=== PATIENT | male | born 1975 | race Two or more races ===

== ENCOUNTER 2022-12-29 10:34 | Emergency (ER) | payer MEDICAID, OTHER ==
[~2022-12-29] VITALS: Ht 177.8 cm; Wt 100.0 kg
[2022-12-29 10:46] VITALS: BP 133/89; PULSE 63; RESP 18; TEMP 97.5; O2SAT 97
[2022-12-29] MEDS ORDERED: LORazepam 2MG/ML-1ML VIAL IV ONE (11:15)
[2022-12-29] MEDS ORDERED: IBUP-1456 PO (12:15)
== END 2022-12-29 12:27 | disposition home or self-care (01) ==
LOC: EDBD 10:34 → ER 10:34
DX: S46.911A Strain of unspecified muscle, fascia and tendon at shoulder and upper arm level, right arm, initial encounter (principal); S60.811A Abrasion of right wrist, initial encounter; F45.8 Other somatoform disorders; W54.0XXA Bitten by dog, initial encounter; Y93.89 Activity, other specified; Y92.89 Other specified places as the place of occurrence of the external cause; Y99.8 Other external cause status
CPT/HCPCS: 73030; 73110; 96374; 99284; J2060

== ENCOUNTER 2023-07-20 14:52 | Inpatient (IN) | payer MEDICAID ==
[~2023-07-20] VITALS: Ht 170.2 cm; Wt 85.0 kg
[~2023-07-20 14:52] MED LIST: IBUP-1456 PO
[2023-07-20 15:40] LABS: Basophils # (auto) 0 10 ^3/uL (0-0.2); Basophils % (auto) 0.5 % (0.0-2.0); Eosinophils # (auto) 0 10 ^3/uL (0-0.8); Eosinophils % (auto) 0.8 % (0.0-7.0); Hematocrit 45.3 % (41.0-53.0); Hemoglobin 15.2 g/dL (13.5-17.5); Mean Corpuscular Hemoglobin 29.8 pg (28.0-32.0); Mean Corpuscular Hgb Conc. 33.6 g/dL (32.0-36.0); Mean Corpuscular Volume 88.7 fL (80.0-100.0); Monocytes # (auto) 0.4 10 ^3/uL (0-1.3); Neutrophils % (auto) 73.7 % (37.0-80.0); Nucleated Red Blood Cells % 0.1 %; Red Blood Cells 5.11 10^6/uL (4.5-5.90); Red Cell Distribution Width 13.8 % (11.8-14.3); White Blood Cell 5.4 10^3/uL (4.4-10.8)
[2023-07-20 15:57] LABS: INR 1.03 (0.9-1.15); Partial Thromboplastin Time 27.6 SEC (24.5-34.5); Prothrombin Time 10.9 sec (9.3-11.8)
[2023-07-20 16:19] LABS: Alanine Aminotransferase 24 U/L (7-40); Albumin 5.1 g/dL (3.2-4.8); Alkaline Phosphatase 71 U/L (46-116); Anion Gap 5 (5-15); Aspartate Aminotransferase 14 U/L (13-40); BUN/Creatinine Ratio 13.1 (10.0-20.0); Bilirubin, Total 0.7 mg/dL (0.2-1.0); Blood Urea Nitrogen 11 mg/dL (9-23); Carbon Dioxide 27 mmol/L (20-30); Chloride 107 mmol/L (98-107); Glucose 109 mg/dL (74-106); Magnesium 1.9 mg/dL (1.6-2.6); Potassium 3.9 mmol/L (3.5-5.1); Sodium 139 mmol/L (136-145); Total Protein 7.6 g/dL (5.7-8.2)
[2023-07-20] MEDS: ASPirin 81 mg TAB PO ONE (16:32)
[2023-07-20] MEDS: IOHEXOL 350 MG/ML 100ML IJ ONE ×2 (18:03→21:09)
[2023-07-20] MEDS: SODIUM CHLORIDE 0.9% 1,000 ML IV SCH (21:45)
[2023-07-20] MEDS ORDERED: DOCUSATE SOD 100 MG CAP PO PRN (21:45)
[2023-07-20] MEDS ORDERED: NITROGLYCERIN 0.4 MG SL TAB SL PRN (22:45)
[2023-07-21] VITALS (9 sets, daily range): BP systolic 104–136; BP diastolic 56–77; PULSE 58–71; RESP 11–19; TEMP 97.5–98.9; O2SAT 94–98
[2023-07-21] MEDS ORDERED: hydrALAZINE HCL 20 MG/ML VL IV PRN (01:15)
[2023-07-21] MEDS ORDERED: METO25TA93 PO (03:28)
[2023-07-21] MEDS ORDERED: PRAV20TA3 PO (03:28)
[2023-07-21 06:27] LABS: Basophils # (auto) 0 10 ^3/uL (0-0.2); Basophils % (auto) 0.4 % (0.0-2.0); Eosinophils # (auto) 0.1 10 ^3/uL (0-0.8); Hematocrit 41.5 % (41.0-53.0); Hemoglobin 14.2 g/dL (13.5-17.5); Lymphocytes # (auto) 1.4 10 ^3/uL (0.4-5.4); Lymphocytes % (auto) 23.4 % (10.0-50.0); Mean Corpuscular Hemoglobin 30.3 pg (28.0-32.0); Mean Corpuscular Hgb Conc. 34.2 g/dL (32.0-36.0); Mean Corpuscular Volume 88.5 fL (80.0-100.0); Monocytes # (auto) 0.6 10 ^3/uL (0-1.3); Monocytes % (auto) 10.2 % (0.0-12.0); Neutrophils # (auto) 3.9 10 ^3/uL (1.6-8.6); Red Blood Cells 4.69 10^6/uL (4.5-5.90); Red Cell Distribution Width 13.9 % (11.8-14.3); White Blood Cell 5.9 10^3/uL (4.4-10.8)
[2023-07-21 06:50] LABS: Alanine Aminotransferase 18 U/L (7-40); Albumin 4.6 g/dL (3.2-4.8); Alkaline Phosphatase 63 U/L (46-116); Anion Gap 5 (5-15); Aspartate Aminotransferase 8 U/L (13-40); BUN/Creatinine Ratio 11.3 (10.0-20.0); Bilirubin, Total 0.8 mg/dL (0.2-1.0); Blood Urea Nitrogen 9 mg/dL (9-23); Calcium 9.8 mg/dL (8.5-10.1); Carbon Dioxide 28 mmol/L (20-30); Chloride 107 mmol/L (98-107); Glucose 109 mg/dL (74-106); Potassium 3.8 mmol/L (3.5-5.1); Sodium 140 mmol/L (136-145); Total Protein 6.9 g/dL (5.7-8.2)
[2023-07-21] MEDS: ASPirin 81 mg TAB PO SCH (10:31)
[2023-07-21 16:24] LABS: Urine Bacteria None Seen /hpf (None Seen)
[2023-07-21 16:40] LABS: Urine Blood Negative /uL (Negative); Urine Clarity Clear (Clear); Urine Color Light-Yellow (Yellow); Urine Protein, UAD Negative (Negative); Urine Specific Gravity 1.017 (1.001-1.035); Urine Urobilinogen Normal (Negative); Urine WBC <1 /hpf (0 - 3)
[2023-07-21 17:01] LABS: Amphetamine Screen, Urine Neg (NEGATIVE); Barbiturate Scree,Urine Neg (NEGATIVE); Benzodiazephine Screen, Urine Neg (NEGATIVE); Cannabinoid Screen, Urine Neg (NEGATIVE); Cocaine Screen, Urine Neg (NEGATIVE); Opiate Scree,Urine Neg (NEGATIVE); Phencyclidine Screen, Urine Neg (NEGATIVE)
[2023-07-21] MEDS: FUROSEMIDE 100 MG/10ML VIAL IV SCH (17:33)
[2023-07-21] MEDS: ATORVASTATIN 20 MG TAB PO SCH (21:26)
[2023-07-22] VITALS (9 sets, daily range): BP systolic 106–123; BP diastolic 66–76; PULSE 61–73; RESP 17–20; TEMP 98.1–99.2; O2SAT 96–99
[2023-07-22] MEDS: ONDANSETRON HCL 4 MG/2 ML VIAL IV PRN (09:23)
[2023-07-22] MEDS: FUROSEMIDE 100 MG/10ML VIAL IV SCH (18:19)
[2023-07-22] MEDS: IBUPROFEN 600 MG TAB PO PRN (20:47)
[2023-07-23] VITALS (8 sets, daily range): BP systolic 107–122; BP diastolic 69–80; PULSE 47–80; RESP 16–20; TEMP 97.8–98.4; O2SAT 94–97
[2023-07-23] MEDS: ADENOSINE 71 MG in GIVE UN-DILUTED 0 ML IV ONE (09:00)
[2023-07-23 16:34] LABS: Erythrocyte Sedimentation Rate 2 mm/hr (0-20)
[2023-07-24 01:00] VITALS: BP 107/69; PULSE 69; RESP 16; TEMP 98; O2SAT 94
[2023-07-24 05:00] VITALS: BP 114/68; PULSE 60; RESP 16; TEMP 97.6; O2SAT 95
[2023-07-24] MEDS: PANTOPRAZOLE 40 MG TAB PO SCH (06:01)
[2023-07-24] MEDS ORDERED: MAGN241.6 PO (08:09)
[2023-07-24] MEDS ORDERED: CHOL20002 PO (08:09)
[2023-07-24] MEDS ORDERED: ALBU108A5 PO (08:09)
[2023-07-24] MEDS ORDERED: MET25T PO (08:09)
[2023-07-24 08:30] VITALS: PULSE 66; RESP 14; O2SAT 97
[2023-07-24 08:31] VITALS: BP 128/74; PULSE 57; RESP 18; TEMP 98; O2SAT 94
[2023-07-24 12:29] VITALS: BP 103/62; PULSE 53; RESP 20; TEMP 97.9; O2SAT 97
[2023-07-24] MEDS ORDERED: ALPR0.5T PO (15:45)
[2023-07-24 16:28] VITALS: BP 109/70; PULSE 65; RESP 20; TEMP 97.9; O2SAT 95
== END 2023-07-24 16:30 | disposition home or self-care (01) | DRG 203 ==
LOC: EDBD 14:52 → ER 14:55 → TELE 22:37 → TELE-WESTW 07-21 06:55
PROVIDERS: ADMIT Nurse Practitioner Family; ATTEND Nurse Practitioner Acute Care
DX: R07.89 Other chest pain (principal); E78.5 Hyperlipidemia, unspecified; F41.9 Anxiety disorder, unspecified; I10 Essential (primary) hypertension; R26.81 Unsteadiness on feet; Z79.899 Other long term (current) drug therapy; Z87.891 Personal history of nicotine dependence; Z88.5 Allergy status to narcotic agent; Z88.6 Allergy status to analgesic agent
CPT/HCPCS: 36415; 71045; 71275; 80053; 80307; 81001; 83605; 83735; 83880; 84484; 85025; 85379; 85610; 85652; 85730; 86141; 87040; 93005; 93306; 96360; G0378; J0153; J2405